=== PATIENT | female | born 1950 | race Two or more races ===

== ENCOUNTER 2024-11-24 17:17 | Emergency (ER) | payer OTHER ==
[~2024-11-24] VITALS: Ht 154.9 cm; Wt 66.1 kg
[2024-11-24 17:22] VITALS: BP 122/83; RESP 16; TEMP 98.2; O2SAT 96
[2024-11-24 17:34] VITALS: PULSE 74
--- NOTE | 2024-11-24 18:18 | DVH ---
CT STROKE CTH Indication: LEFT SIDED FACIAL TINGLING EXAM DATE: 11/24/2024 05:35 PM COMPARISON: None TECHNIQUE: CT of the head without intravenous contrast. RADIATION DOSE: CTDIvol: 56.43 mGy, DLP: 999 mGy*cm FINDINGS: There is no intracranial hemorrhage. There is no extra-axial fluid, mass, mass effect or midline shif t. The ventricles are midline and normal in size. Basilar cisterns are patent. Mild periventricular a nd subcortical white matter chronic microvascular ischemic changes. Mild global cerebral volume loss . The paranasal sinuses and mastoids are well-pneumatized. Imaged portion of the orbits are unremarkabl e. IMPRESSION: No intracranial hemorrhage or mass effect. Mild chronic microvascular ischemic changes.
--- NOTE | 2024-11-24 19:04 | ED.PDOC ---
HPI (NEURO) HPI Comments 74-year-old female who came to ER for facial numbness. Patient has a history of dyslipidemia and psoriatic arthritis, for the past few months she has been experiencing left-sided facial tingling, has never sought any consult regarding this issue. This morning, patient woke up with left sided facial tingling, now accompanied with left periorbital pressure, in left temporal-parietal headaches. Denies any slurring of speech, or unilateral weakness numbness of extremities. Self-medicated with an allergy pill and aspirin but offered no relief REVIEW OF SYSTEMS: General: No fever, no chills, or fatigue HEENT: No sore throat, no earache, no congestion, no neck pain. Left eye pressure. Cardiac: No chest pain. No palpitations. Lungs: No shortness of breath, no cough. GI: No nausea, no vomiting, no diarrhea, no constipation, no abdominal pain : No dysuria, frequency, or urgency. No hematuria. Musculoskeletal: No joint pain , no joint swelling, no extremity edema. Skin: No rash, no itching. Neuro: No headache, no dizziness, no weakness, (+) left facial tingling, (+) left periorbital pressure EXAM: General: Awake, alert and oriented. No acute distress. Skin: Skin in warm, dry and intact. Appropriate color for ethnicity. HEENT: The head is normocephalic and atraumatic. Mild left eye conjunctival injection. Sclera is non-icteric. EOM are intact. No signs of nystagmus. Eyelids are normal in appearance without swelling or lesions. Oral mucosa is pink and moist Neck: The neck is supple with normal range of motion. No JVD. Cardiac: Heart rate and rhythm are normal. No murmurs, gallops, or rubs are auscultated. Respiratory: No signs of respiratory distress. Lung sounds are clear in all lobes bilaterally without rales, rhonchi, or wheezes. Abdominal: Abdomen is soft, non-tender without distention. Bowel sounds are present and normoactive in all four quadrants. Extremities: Upper and lower extremities are atraumatic in appearance without deformity or edema. Neurological: The patient is awake, alert and oriented to person, place, and time with normal speech. Speech is clear. There is no facial asymmetry. Sensation intact. No facial droop. Normal gait. Strength intact. Psychiatric: Appropriate mood and affect. Good judgement and insight Chief Complaint: Left Sided Weakness Time Seen by MD: 19:03 Reviewed Notes: Nurses Notes Information Source: Patient Mode of Arrival: Ambulatory Past Medical History PAST MEDICAL HISTORY: Arthritis (Psoriatic), High Lipids Surgical History: Denies all surgeries REFRIGERATING TECHNICIAN History: Denies all REFRIGERATING TECHNICIAN Hx Family History Family History: Reviewed,noncontributory to illness Social History Smoker: Non-Smoker Alcohol: Denies ETOH Use Drugs: Denies Drug Use Lives In: Home Was a procedure done? Was a procedure done?: No Differential Diagnosis (SZ) Headache: Cluster, Migraine, CVA, Sinusitis X-Ray, Labs, Meds, VS Vital Signs Date Time Temp Pulse Resp B/P (MAP) Pulse Ox O2 Delivery O2 Flow Rate FiO2 11/24/24 17:34 74 11/24/24 17:22 98.2 78 16 122/[address] STROKE CTH Indication: LEFT SIDED FACIAL TINGLING EXAM DATE: 11/24/2024 05:35 PM COMPARISON: None TECHNIQUE: CT of the head without intravenous contrast. RADIATION DOSE: CTDIvol: 56.43 mGy, DLP: 999 mGy*cm FINDINGS: There is no intracranial hemorrhage. There is no extra-axial fluid, mass, mass effect or midline shift. The ventricles are midline and normal in size. Basilar cisterns are patent. Mild periventricular and subcortical white matter chronic microvascular ischemic changes. Mild global cerebral volume loss. The paranasal sinuses and mastoids are well-pneumatized. Imaged portion of the o rbits are unremarkable. IMPRESSION: No intracranial hemorrhage or mass effect. Mild chronic microvascular ischemic changes. Time of 1ST Reevaluation: 18:59 Reevaluation 1ST: Unchanged Patient Education/Counseling: Need For Follow Up Family Education/Counseling: No Family Present Departure 1 Departure Time of Disposition: 22:16 Impression: Primary Impression: Eloped from emergency department Disposition: 07 LEFT AWOL/ELOPED Condition: Other Comments Patient is seen and evaluated for left eye pressure and left-sided facial tingling. CT head reviewed. Discussed with the patient plan of care including laboratory studies, eye examination. Patient eloped from the emergency department prior to completing workup. Critical Care Note Critical Care Time?: No Stability Stability form required: No Heart Score Heart Score: Heart Score Response (Comments) Value History N/A 0 EKG N/A 0 Age N/A 0 Risk Factors N/A 0 Troponin N/A 0 Total 0 I personally scribed for JEFFERY GARCIA MD ([email or web address]) on 11/24/24 at 19:04. Electronically submitted by Dylan Ricci ([employer]). I personally scribed for JEFFERY GARCIA MD ([email or web address]) on 11/24/24 at 20:33. Electronically submitted by Dylan Ricci ([employer]). JEFFERY GARCIA MD Nov 24, 2024 19:04
--- NOTE | 2024-11-24 19:20 | ECG ---
[facility] Test Date: 2024-11-24 Test Time: 17:31:09 Pat Name: DEBBY COX Department: Room: Gender: F Electrical Engineering Technologist: : [id number] Requested By: JEFFERY GARCIA Order Number: [id number] Reading MD: Measurements Intervals Jenners Rate: 74 P: 73 AR: 156 QRS: 43 QRSD: 92 T: 49 QT: 425 QTc: 472 Interpretive Statements Sinus rhythm Abnormal R-wave progression, early transition Please click the below link to view image of tracing.
== END 2024-11-24 22:18 | disposition left against medical advice (07) ==
LOC: ER 17:27
DX: R51.9 Headache, unspecified (principal); R20.0 Anesthesia of skin; R20.2 Paresthesia of skin; E78.5 Hyperlipidemia, unspecified; M19.90 Unspecified osteoarthritis, unspecified site; Z79.899 Other long term (current) drug therapy
CPT/HCPCS: 70450; 82947; 93005